=== PATIENT | female | born 1995 | race Caucasian/White ===

== ENCOUNTER 2023-04-06 00:21 | Inpatient (IN) | payer MEDICAID ==
[~2023-04-06] VITALS: Ht 165.1 cm; Wt 58.1 kg
--- NOTE | 2023-04-06 00:42 | NUR ---
BIBFRIEND FOR GENERALIZED ABD PAIN SINCE TUESDAY WORSE WITH PO INTAKE. PT AAOX4, RESTLESS IN BED, GUARDING ABDOMEN AREA. VITALS CHECKED.
[2023-04-06] MEDS ORDERED: MORPHINE SULFATE INJ 4 MG/ML DISP.SYRIN ONE ×3 (00:48→04:42)
[2023-04-06] MEDS ORDERED: IV NS 0.9% 1,000 ML BAG IV ONE (01:00)
[2023-04-06] MEDS ORDERED: MORPHINE SULFATE INJ 2 MG/ML DISP.SYRIN IV ONE ×2 (01:00→03:30)
--- NOTE | 2023-04-06 01:00 | NUR ---
20GA TO RIGHT AC ESTABLISHED, BLOOD WORK COLLECTED, SENT TO LAB
--- NOTE | 2023-04-06 01:20 | NUR ---
TO CT W/ TECH
[2023-04-06 01:33] LABS: BASOPHILS # (AUTO) 0.1 K/uL (0.0-0.2); BASOPHILS % (AUTO) 0.5 % (0.0-2.0); EOSINOPHILS % (AUTO) 0.7 % (0.0-6.0); HEMATOCRIT 39 % (33-45); HEMOGLOBIN 12.7 g/dL (11.5-14.8); LYMPHOCYTES # (AUTO) 0.6 K/uL (0.8-4.8); LYMPHOCYTES % (AUTO) 6.1 % (20.0-44.0); MEAN CORPUSCULAR HGB CONC 32 g/dl (31.0-36.0); MEAN CORPUSCULAR VOLUME 87 fL (82-100); MONOCYTES # (AUTO) 0.9 K/uL (0.1-1.30); MONOCYTES % (AUTO) 8.5 % (2.0-12.0); NEUTROPHILS # (AUTO) 8.8 K/uL (1.8-8.9); NEUTROPHILS % (AUTO) 84.2 % (43.0-81.0); PLATELET COUNT (AUTO) 293 K/uL (150-450); RED BLOOD CELL COUNT(AUTO) 4.54 MIL/uL (4.0-5.2); WHITE BLOOD COUNT (AUTO) 10.5 K/uL (4.3-11.0)
[2023-04-06 01:45] LABS: CALCIUM, SERUM 9.3 mg/dL (8.5-10.1); CREATININE 0.7 mg/dL (0.6-1.3); POTASSIUM 3.9 mmol/L (3.5-5.1)
[2023-04-06 01:50] LABS: ALBUMIN 3.8 g/dL (3.4-5.0); BILIRUBIN,DIRECT 0.3 mg/dL (0.0-0.2); TOTAL PROTEIN, SERUM 7.8 g/dL (6.4-8.2)
[2023-04-06] MEDS ORDERED: FLAGYL/NS RTU 500 MG/100 ML PIGGYBACK IV ONE (03:00)
[2023-04-06] MEDS ORDERED: CIPROFLOXACIN IV RTU 400 MG in PREMIX 1 EA IV SCH (03:00)
[2023-04-06] MEDS ORDERED: METRONIDAZOLE 500MG/ NS 100ML 100 ML IV ONE (03:06)
--- NOTE | 2023-04-06 03:21 | NUR ---
DR HAUSER ON THE PHONE WITH DR BENJI ROSA SURG
--- NOTE | 2023-04-06 03:58 | NUR ---
PARTNER/MG REA [phone], FRIEND WHO BROUGHT HER TO ED IS HERMINIA [phone]
[2023-04-06] MEDS ORDERED: CIPROFLOXACIN IV RTU 200 ML IV ONE (04:13)
--- NOTE | 2023-04-06 04:15 | NUR ---
Chidi sharp in [facility] - 04/06/[address] HAUSER ON THE PHONE W/ DR. ANDRADE FROM [facility]
--- NOTE | 2023-04-06 04:41 | NUR ---
REPORT TO GIVEN TO TYLER WHEELER
--- NOTE | 2023-04-06 04:50 | NUR ---
MAGDALENA RECEIVED FROM ER 27 Y/O FEMALE WITH CC OF ABDOMINAL PAIN MOANING AND CRYING HAD TOTAL OF 12 MG MORPHINE IN ER. FLAGYL INFUSING. AWAITING FOR ADMISSION ORDERS. SPANISG SPEAKING ONLY, ADM INFORMATION OBTAINED FROM PATIENT WITH SUSTAINABILITY CONSULTANT.ORIENTED TO ROOM FACILITIES WELL UNDERSTOOD.
[2023-04-06 05:00] VITALS: BP_SYST 125; BP_DIAS 71; BP_DIAS 75
[2023-04-06] MEDS ORDERED: MORPHINE SULFATE INJ 4 MG/ML DISP.SYRIN IV PRN (05:00)
[2023-04-06] MEDS ORDERED: MAGNESIUM HYDROXIDE 30 ML UDC PO PRN (06:00)
[2023-04-06] MEDS ORDERED: ZOLPIDEM TARTRATE 5 MG TABLET PO PRN (06:00)
[2023-04-06] MEDS ORDERED: ONDANSETRON HCL/PF 4 MG/2 ML VIAL IVP PRN (06:00)
[2023-04-06] MEDS ORDERED: Z GUARD REMEDY 4 OZ OINT TP PRN (06:00)
[2023-04-06] MEDS ORDERED: HYDROCODONE/APAP 5/325MG TABLET PO PRN (06:00)
[2023-04-06] MEDS ORDERED: ACETAMINOPHEN 325 MG TABLET PO PRN (06:00)
[2023-04-06] MEDS ORDERED: MAG HYDROX/AL HYDROX/SIMETH 30 ML UDC PO PRN (06:00)
[2023-04-06] MEDS ORDERED: PIPERACILLIN /TAZOBACTAM 3.375 G in IV D5W 50 ML IV ONE (06:30)
--- NOTE | 2023-04-06 06:30 | NUR ---
MSRN KEPT NPO IVF STARTED. FINALLY FELL ASLEEP.
[2023-04-06] MEDS ORDERED: PIPERACI/TAZO 3.375GM/D5W 50ML PB IV ONE (06:40)
[2023-04-06] MEDS: IV NS 0.9% 1,000 ML IV PRN (06:48)
[2023-04-06 07:40] LABS: BASOPHILS % (AUTO) 0.2 % (0.0-2.0); EOSINOPHILS % (AUTO) 0.6 % (0.0-6.0); HEMATOCRIT 36 % (33-45); LYMPHOCYTES # (AUTO) 0.8 K/uL (0.8-4.8); LYMPHOCYTES % (AUTO) 10.3 % (20.0-44.0); MEAN CORPUSCULAR HGB CONC 33 g/dl (31.0-36.0); MEAN CORPUSCULAR VOLUME 86 fL (82-100); MONOCYTES # (AUTO) 0.9 K/uL (0.1-1.30); MONOCYTES % (AUTO) 10.9 % (2.0-12.0); NEUTROPHILS # (AUTO) 6.2 K/uL (1.8-8.9); PLATELET COUNT (AUTO) 255 K/uL (150-450); RED BLOOD CELL COUNT(AUTO) 4.22 MIL/uL (4.0-5.2); WHITE BLOOD COUNT (AUTO) 7.9 K/uL (4.3-11.0)
--- NOTE | 2023-04-06 07:50 | NUR ---
RN OPENING NOTE RECEIVED PATIENT AWAKE IN BED, A/O X 4. ON ROOM AIR, BREATHING EVEN AND UNLABORED. NO SIGNS OF DISTRESS NOTED. S/S NO PAIN NOTED AT THIS TIME. IV ACCESS AT RAC G#20, INTACT PATENT AND FLUSHING WELL, RUNNING NS AT 75 ML/HOUR, INFUSING WELL. FALL AND SAFETY MEASURES IN PLACED, BED LOCKED IN LOWEST POSITION, SIDE RAILS UP X 2, CALL LIGHT AND TABLE WITHIN REACH; WILL CONTINUE TO MONITOR PATIENT THROUGHOUT SHIFT.
[2023-04-06 08:00] VITALS: BP 102/66
[2023-04-06 09:00] LABS: ALBUMIN 3.1 g/dL (3.4-5.0); CALCIUM, SERUM 8.6 mg/dL (8.5-10.1); CREATININE 0.6 mg/dL (0.6-1.3); MAGNESIUM 2.2 mg/dL (1.8-2.4); PHOSPHORUS 2.4 mg/dL (2.5-4.9); POTASSIUM 3.6 mmol/L (3.5-5.1); TOTAL PROTEIN, SERUM 6.8 g/dL (6.4-8.2)
[2023-04-06] MEDS: PANTOPRAZOLE 40 MG VIAL IV SCH (09:11)
--- NOTE | 2023-04-06 11:40 | NUR ---
RN NOTE PATIENT HAVE FEVER 101.7, BP: 116/78 HR:128, ABDOMINAL PAIN 8/10, DOCTOR WAS INFORMED, NO NEW ORDERS, COOLING MEASURES USED, CHARGE NURSE AWARE, WILL CONTINUE TO MONITOR.
--- NOTE | 2023-04-06 11:58 | NUR ---
RN NOTE PATIENT IS NOT IN HER ROOM PATIENT WENT FOR A NM HEPATO BILIARY HIDA, CHARGE NURSE AWARE.
--- NOTE | 2023-04-06 13:33 | NUR ---
RN NOTE PATIENT IS BACK IN HER ROOM, PATIENT WENT FOR NM HEPATO BILIARY HIDA, TOLERATED PROCEDURE WILL. PATIENT COMPLAINING OF ABDOMINAL PAIN 8/10 AND NAUSEA WILL GIVE PAIN MEDICATION AND ZOFRAN. CHARGE NURSE AWARE. WILL CONTINUE TO MONITOR.
[2023-04-06] MEDS: MORPHINE SULFATE INJ 2 MG/ML DISP.SYRIN IV PRN ×2 (13:42→21:31)
--- NOTE | 2023-04-06 14:10 | NUR ---
RN NOTE PATIENT IS NOT IN HER ROOM PATIENT WENT FOR A MRCP, CHARGE NURSE AWARE.
[2023-04-06 16:00] VITALS: BP 102/57
[2023-04-06] MEDS ORDERED: Sodium Phosphate 15 MMOL in IV NS 0.9% 245 ML IV ONE (16:00)
[2023-04-06] MEDS: PIPERACILLIN /TAZOBACTAM 3.375 G in IV D5W 50 ML IV SCH ×2 (16:26→20:30)
--- NOTE | 2023-04-06 17:58 | NUR ---
RN NOTE DOCTOR BENJI WAS IN THE UNIT AND ASK TO PLEASE BE NOTIFY WHEN THERE IS A CONFIRMATION OF PATIENT STAY OR TRANSFERRING TO [facility]. CHARGE NURSE AWARE. WILL ENDORSE TO NEXT SHIFT NURSE.
--- NOTE | 2023-04-06 18:48 | NUR ---
RN NOTE RECEIVED CALLED FROM HUONG, HER NUMBER IS [phone], SHE GAVE AUTHORIZATION # [id number]. PATIENT SUPPOSED TO BE TRANSFER TO [facility] DUE TO INSURANCE. TRIED TO CALL CM NO ANSWER, DC WITH IMAGES ORDERED, AWAITING TO BE TRANSFER CHARGE NURSE AWARE, WILL ENDORSE TO DREDGE BOAT ENGINEER NURSE.
--- NOTE | 2023-04-06 18:49 | NUR ---
RN CLOSING NOTE PATIENT AWAKE IN BED, A/O X 4. ON ROOM AIR, BREATHING EVEN AND UNLABORED. NO SIGNS OF DISTRESS NOTED. PAIN LEVEL 4/10 PAIN MEDICATION WAS GIVEN DURING AM SHIFT. IV ACCESS AT RAC G#20, INTACT PATENT AND FLUSHING WELL, RUNNING NS AT 75 ML/HOUR, INFUSING WELL. FALL AND SAFETY MEASURES IN PLACED, BED LOCKED IN LOWEST POSITION, SIDE RAILS UP X 2, CALL LIGHT AND TABLE WITHIN REACH. ALL NEEDS ATTENDED AND ANTICIPATED. PATIENT AWAITING TO BE TRANSFER TO [facility]. WILL ENDORSE TO DIRT CONTRACTOR NURSE..
--- NOTE | 2023-04-06 19:00 | NUR ---
RN opening notes Received Pt from morning nurse. Pt is resting in bed comfortably accompanied by Pt's partner Jakob. Pt is alert and orientedX4. Pt speaks Portuguese and able to make needs known. IV site at RAC# 20 is clean, intact and infusing well sodium phosphate. safety precautions is maintained. Bed at low position, brakes locked, bed alarm is on, side rails upX2, hob elevated and call light is within reach. will continue to monitor.
--- NOTE | 2023-04-06 19:43 | NUR ---
RN notes Called raissa and spoke with Leny regarding orange picker machine operator time to Marisela Michele informed there is no schedule yet. Informed Leny will call back.
--- NOTE | 2023-04-06 19:50 | NUR ---
RN notes Called case worker spoke with Margaret regarding lateral transfer. Margaret informed there's no available bed yet at [facility] and they will call back to inform the bed number.
--- NOTE | 2023-04-06 19:52 | NUR ---
RN notes Called [facility] regarding bed number. [facility] informed there is no available bed at this time. They will call when the bed is avalaible. Pt and Pt's partner are informed and aware regarding the situation.
[2023-04-06 20:00] VITALS: BP_SYST 113; BP_SYST 97; BP_DIAS 67; BP_DIAS 68
--- NOTE | 2023-04-06 21:39 | NUR ---
RN notes Pt is complaining of pain and crying. Pt is complaining of abd pain. administered morphine as ordered. VS is stable. safety precautions is maintained. will continue to monitor.
--- NOTE | 2023-04-06 23:25 | NUR ---
RN notes Pt signed the consent for ERCP per MD ordered. Pt partner Jakob at the bedside. Pt and Pt's partner verbalize understanding.
--- NOTE | 2023-04-06 23:38 | NUR ---
RN notes Pt is having temp 100.1. administered tylenol/po as ordered. No S/S of distress noted. Cooling measures applied. will rechecked in 30 min.
--- NOTE | 2023-04-07 00:14 | NUR ---
RN notes Pt temp 98.2 oral.
[2023-04-07] MEDS: PIPERACILLIN /TAZOBACTAM 3.375 G in IV D5W 50 ML IV SCH ×5 (00:34→23:36)
[2023-04-07 05:54] LABS: BASOPHILS % (AUTO) 0.2 % (0.0-2.0); EOSINOPHILS % (AUTO) 1.5 % (0.0-6.0); HEMATOCRIT 37 % (33-45); HEMOGLOBIN 12.4 g/dL (11.5-14.8); LYMPHOCYTES # (AUTO) 1.1 K/uL (0.8-4.8); LYMPHOCYTES % (AUTO) 10.7 % (20.0-44.0); MEAN CORPUSCULAR HGB CONC 33 g/dl (31.0-36.0); MEAN CORPUSCULAR VOLUME 86 fL (82-100); MONOCYTES # (AUTO) 1.4 K/uL (0.1-1.30); MONOCYTES % (AUTO) 13.2 % (2.0-12.0); NEUTROPHILS # (AUTO) 7.9 K/uL (1.8-8.9); NEUTROPHILS % (AUTO) 74.4 % (43.0-81.0); PLATELET COUNT (AUTO) 228 K/uL (150-450); RED BLOOD CELL COUNT(AUTO) 4.35 MIL/uL (4.0-5.2); WHITE BLOOD COUNT (AUTO) 10.6 K/uL (4.3-11.0)
[2023-04-07] MEDS: MORPHINE SULFATE INJ 2 MG/ML DISP.SYRIN IV PRN ×2 (06:10→22:03)
[2023-04-07 06:24] LABS: ALBUMIN 2.7 g/dL (3.4-5.0); BILIRUBIN,DIRECT 0.3 mg/dL (0.0-0.2); BILIRUBIN,TOTAL 0.9 mg/dL (0.2-1.0); CALCIUM, SERUM 8.8 mg/dL (8.5-10.1); CREATININE 0.6 mg/dL (0.6-1.3); MAGNESIUM 2.3 mg/dL (1.8-2.4); PHOSPHORUS 3.3 mg/dL (2.5-4.9); POTASSIUM 3.7 mmol/L (3.5-5.1); TOTAL PROTEIN, SERUM 6.7 g/dL (6.4-8.2)
--- NOTE | 2023-04-07 06:40 | NUR ---
RN closing notes Pt is resting in bed comfortably. Pt is alert and orientedX4. On room air. No SOB. No S/S of distress noted. IV site at RAC# 2o is clean, intact and infusing well NS@ 75 ml/hr. routine meds were given as ordered including pain management. Vs is stable. afebrile. Kept Pt clean, dry and comfortable. Safety precautions is maintained. Bed at low position, brakes locked, side rails upX2, hob elevated, bed alarm is on and call light is within reach. Will endorse to am nurse for DASHAWN.
--- NOTE | 2023-04-07 07:30 | NUR ---
RN OPENING NOTE RECEIVED PATIENT AWAKE IN BED, A/O X 4. ON ROOM AIR, BREATHING EVEN AND UNLABORED. NO SIGNS OF DISTRESS NOTED. PAIN LEVEL 3/10 NOTED AT THIS TIME, PAIN MEDICATION WAS GIVEN BY PREVIOUS NURSE. IV ACCESS AT RAC G#20, INTACT PATENT AND FLUSHING WELL, RUNNING NS AT 75 ML/HOUR, INFUSING WELL. FALL AND SAFETY MEASURES IN PLACED, BED LOCKED IN LOWEST POSITION, BED ALARM ON, SIDE RAILS UP X 2, CALL LIGHT AND TABLE WITHIN REACH; WILL CONTINUE TO MONITOR PATIENT THROUGHOUT SHIFT.
[2023-04-07] MEDS: PANTOPRAZOLE 40 MG VIAL IV SCH (08:16)
[2023-04-07 08:36] VITALS: BP 115/77
[2023-04-07] MEDS ORDERED: MIDAZOLAM HCL 2 MG/2ML VIAL ONE (10:34)
[2023-04-07] MEDS ORDERED: FENTANYL PF 100MCG/2ML AMPUL ONE (10:34)
[2023-04-07] MEDS ORDERED: ROCURONIUM BROMIDE 50 MG/5 ML ONE (10:35)
[2023-04-07] MEDS ORDERED: FAMOTIDINE/PF INJ 20 MG/2 ML VIAL IV ONE (10:35)
[2023-04-07] MEDS ORDERED: ANESTHESIA TRAY IN PYXIS 1 EA TRAY MC ONE (10:37)
[2023-04-07] MEDS ORDERED: IOHEXOL 100 ML IV ONE (10:37)
[2023-04-07] MEDS ORDERED: INDOMETHACIN 100 MG SUPP.RECT ONE ×2 (10:38→16:35)
--- NOTE | 2023-04-07 11:30 | NUR ---
RN NOTE PATIENT IS NOT IN HER ROOM PATIENT WENT FOR AN ERCP. CHARGE NURSE AWARE.
--- NOTE | 2023-04-07 14:03 | NUR ---
RN NOTE PATIENT IS BACK IN HER ROOM, PATIENT WENT FOR ERCP, TOLERATED PROCEDURE WELL. V/S TAKEN AND STABLE. CHARGE NURSE AWARE. WILL CONTINUE TO MONITOR.
[2023-04-07 14:05] VITALS: BP 127/77
[2023-04-07] MEDS: IV NS 0.9% 1,000 ML IV PRN (15:03)
[2023-04-07 15:41] VITALS: BP 119/76
--- NOTE | 2023-04-07 15:59 | NUR ---
RN NOTE DOCTOR BENJI CALLED AND ORDER PATIENT TO BE NPO AFTER MIDNIGHT AND TO OBTAIN CONSENT FOR LAPAROSCOPIC CHOLECYSTECTOMY POSSIBLE OPEN EXPLORATORY. ORDER NOTED AND CARRIED. CHARGE NURSE AWARE.
--- NOTE | 2023-04-07 18:41 | NUR ---
RN CLOSING NOTE PATIENT AWAKE IN BED, A/O X 4. ON ROOM AIR, BREATHING EVEN AND UNLABORED. NO SIGNS OF DISTRESS NOTED. PAIN LEVEL 2/10 PAIN, NO PAIN MEDICATION GIVEN. IV ACCESS AT RAC G#20, INTACT PATENT AND FLUSHING WELL, RUNNING NS AT 75 ML/HOUR, INFUSING WELL. FALL AND SAFETY MEASURES IN PLACED, BED LOCKED IN LOWEST POSITION, SIDE RAILS UP X 2, CALL LIGHT AND TABLE WITHIN REACH. ALL NEEDS ATTENDED AND ANTICIPATED. PATIENT AWAITING TO BE TRANSFER TO [facility]. WILL ENDORSE TO GREEN END DEPARTMENT SUPERVISOR NURSE.
--- NOTE | 2023-04-07 19:00 | NUR ---
RN opening notes Pt is sitting in bed comfortably watching TV. Pt is alert and orientedX4. On room air. No SOB. No S/S of distress noted. IV site at RAC# 20 is clean, intact and infusing well NS@ 75 ml/hr. Safety precautions is maintained. Bed at low position, brakes locked, side rails upX2, hob elevated, bed alarm is on and call light is within reach. Will continue to monitor.
[2023-04-07 20:00] VITALS: BP 105/75
--- NOTE | 2023-04-07 22:09 | NUR ---
RN notes Pt is crying and complaining of abd pain 10/10 on pain level. adminsitered morphine/iv as ordered. safety precautions is maintained. will continue to monitor.
[2023-04-08] VITALS (8 sets, daily range): BP systolic 102–122; BP diastolic 65–83
[2023-04-08] MEDS: IV NS 0.9% 1,000 ML IV PRN (02:31)
[2023-04-08] MEDS: PIPERACILLIN /TAZOBACTAM 3.375 G in IV D5W 50 ML IV SCH ×4 (05:04→23:26)
[2023-04-08 06:14] LABS: BASOPHILS % (AUTO) 0.1 % (0.0-2.0); EOSINOPHILS % (AUTO) 0.1 % (0.0-6.0); HEMATOCRIT 37 % (33-45); HEMOGLOBIN 12.2 g/dL (11.5-14.8); LYMPHOCYTES # (AUTO) 0.4 K/uL (0.8-4.8); LYMPHOCYTES % (AUTO) 4.4 % (20.0-44.0); MEAN CORPUSCULAR HGB CONC 33 g/dl (31.0-36.0); MEAN CORPUSCULAR VOLUME 85 fL (82-100); MONOCYTES # (AUTO) 0.6 K/uL (0.1-1.30); MONOCYTES % (AUTO) 6.8 % (2.0-12.0); NEUTROPHILS # (AUTO) 8.5 K/uL (1.8-8.9); NEUTROPHILS % (AUTO) 88.6 % (43.0-81.0); PLATELET COUNT (AUTO) 300 K/uL (150-450); WHITE BLOOD COUNT (AUTO) 9.5 K/uL (4.3-11.0)
--- NOTE | 2023-04-08 06:30 | NUR ---
RN closing notes Pt is resting in bed comfortably. Pt is alert and orientedX4. On room air. No SOB. No S/S of distress noted. IV site at RAC# 2o is clean, intact and infusing well NS@ 75 ml/hr. routine meds were given as ordered including pain management. Vs is stable. afebrile. Kept Pt clean, dry and comfortable. NPO status. Safety precautions is maintained. Bed at low position, brakes locked, side rails upX2, hob elevated, bed alarm is on and call light is within reach. Will endorse to am nurse for DASHAWN.
[2023-04-08 06:40] LABS: ALBUMIN 2.5 g/dL (3.4-5.0); BILIRUBIN,DIRECT 1.1 mg/dL (0.0-0.2); BILIRUBIN,TOTAL 1.6 mg/dL (0.2-1.0); CALCIUM, SERUM 8.7 mg/dL (8.5-10.1); CREATININE 0.5 mg/dL (0.6-1.3); TOTAL PROTEIN, SERUM 6.7 g/dL (6.4-8.2)
[2023-04-08] MEDS ORDERED: MIDAZOLAM HCL 2 MG/2ML VIAL ONE ×2 (07:55→13:23)
[2023-04-08] MEDS ORDERED: FENTANYL PF 100MCG/2ML AMPUL ONE ×3 (07:55→13:02)
--- NOTE | 2023-04-08 08:00 | NUR ---
MS RN OPENING NOTES RECEIVED PATIENT IN BED, CALM, AOX4, TURKS AND [place] SPEAKING MOSTLY, ABLE TO UNDERSTAND TAJIK, BREATHING ON ROOM AIR WITHOUT ANY DIFFICULTY. DENIED PAIN, DISCOMFORT, NAUSEA/VOMITING AT THE MOMENT, PATIENT REMAINS TO BE ON NPO FOR HER PROCEDURE AT 0830 FOR LAPAROSCOPIC YANCY POSSIBLE OPEN EXPLORATORY LAP WITH DR LEBLANC. IV ACCESS ON RAC G#20 WITH NS RUNNING AT 75/ML, PATENT, FLUSHING WELL. AMBULATORY. SAFETY MEASURES IN PLACE: BED IN LOWEST AND LOCKED POSITION, SIDE RAILS UP X2, CALL LIGHT AND TRAY TABLE WITHIN EASY REACH.
--- NOTE | 2023-04-08 08:45 | NUR ---
RN NOTES PATIENT WAS PICKED UP BY OR STAFF VIA HER BED FOR LAPAROSCOPIC CHOLECYSTECTOMY PROCEDURE.
[2023-04-08] MEDS ORDERED: LIDOCAINE 1% INJ 50 ML MDV IJ ONE (08:52)
[2023-04-08] MEDS ORDERED: BUPIVACAINE MPF W/EPI 0.25% 30 ML VIAL ONE (08:52)
[2023-04-08] MEDS: PANTOPRAZOLE 40 MG VIAL IV SCH (09:00)
[2023-04-08] MEDS ORDERED: PHYTONADIONE INJ 10 MG/1 ML AMPUL ONE (10:51)
[2023-04-08] MEDS ORDERED: HYDROMORPHONE INJ 2 MG/ML DISP.SYRIN ONE (10:53)
[2023-04-08] MEDS ORDERED: BACITRACIN ZINC OINT PACKET 1 EA PACKET TP ONE (11:33)
[2023-04-08] MEDS ORDERED: HYDROMORPHONE 1 MG/1 ML DISP.SYRIN ONE ×2 (11:59→12:16)
[2023-04-08] MEDS ORDERED: KETOROLAC TROMETHAMINE INJ 30 MG/ML VIAL ONE (13:19)
[2023-04-08] MEDS: CELECOXIB 100 MG CAPSULE PO SCH (14:21)
[2023-04-08] MEDS: GABAPENTIN 100 MG CAPSULE PO SCH ×2 (14:21→22:54)
[2023-04-08] MEDS: ACETAMINOPHEN 325 MG TABLET PO SCH ×2 (14:21→22:55)
[2023-04-08] MEDS ORDERED: KETOROLAC TROMETHAMINE INJ 30 MG/ML VIAL IV ONE (15:00)
[2023-04-08] MEDS ORDERED: KETOROLAC TROMETHAMINE INJ 30 MG/ML VIAL IM ONE (15:00)
--- NOTE | 2023-04-08 16:04 | NUR ---
RN POST OP NOTES PATIENT CAME BACK FROM OR AT 1325 VIA HER BED FROM PACU ACCOMPANIED BY 2 OR STAFF, PATIENT IS SLEEPING EASILY AROUSABLE TO VERBAL STIMULI. BREATHING WITHOUT DIFFICULTY ON ROOM AIR, NOT IN ANY ACUTE DISTRESS, PATIENT IS S/P LAPAROSCOPIC CHOLECYSTECTOMY, LYSIS OF ADHESIONS BY DR DOUGLASS WITH HIRAL DRAIN ON THE RIGHT SIDE OF THE ABDOMEN, DRAINING SEROSANGUINEOUS FLUIDS ABOUT 20 ML, NEGATIVE PRESSURE MAINTAINED. INCISION SITES COVERED WITH DRESSING WITHOUT ANY SIGNS OF BLEEDING AT THE MOMENT. VS TAKEN AND RECORDED, STABLE. IV ACCESS ON RAC G#20 WITH NEW LR IV INFUSING AT 125 ML/HR, PATENT AND FLUSHING WELL. PATIENT HAS BEEN ABLE TO TOLERATE ICE CHIPS, REQUESTED FOR APPLE JUICE. GIVEN DUE PAIN MEDICATIONS AT 1500. PATIENT IS WITH 2 VISITORS AT BEDSIDE. PATIENT IS CALM, AND COOPERATIVE. WILL CONTINUE TO MONITOR.
[2023-04-08] MEDS: MORPHINE SULFATE INJ 2 MG/ML DISP.SYRIN IV PRN (18:14)
--- NOTE | 2023-04-08 18:14 | NUR ---
RN NOTES PATIENT COMPLAINING OF 9/10 ON THE OPERATIVE SITE, ADMINISTERED MORPHINE 4 MG IVPB, WILL CONTINUE TO MONITOR
--- NOTE | 2023-04-08 19:05 | NUR ---
MS RN OPENING NOTE PATIENT IS LYING IN BED. SHE IS ALERT AND ORIENTED, AO X 4. SHE IS ON RA, TOLERATED WELL. NO S/S OF DISTRESS OR SOB. IV ACCESS IS AT HER RIGHT AC, #20G, INFUSING LR @ 125 ML / HR. PT IS LAO SPEAKING, SHE USES PHONE FOR TRANSLATION. PT DENIES OF HAVING PAIN AT THIS MOMENT. SAFETY MEASURES ARE IN PLACED: BED IN LOWEST AND LOCKED POSITION; SIDE RAILS UP X 2; CALL LIGHT AND TABLE ARE WITHIN REACH. WILL CONTINUE MONITORING THE PT AND PROVIDE THE CARE PT NEEDS.
[2023-04-08] MEDS: IV LR 1000 ML 1,000 ML IV PRN ×2 (19:21→23:01)
--- NOTE | 2023-04-08 19:31 | NUR ---
MS SUMMER OPENING NOTES PATIENT IN BED, CALM, AOX4, TALKING TO SOMEONE OVER THE PHONE, STABLE IN ROOM AIR WITHOUT ANY DIFFICULTY. PAIN IS CONTROLLED BY MORPHINE IVP, NO EPISODES OF N/V. INCISION SITES ARE INTACT WITH DRESSING WITHOUT ANY ACTIVE BLEEDING NOTED, HIRAL DRAINED DRAINING SEROSANGUINEOUS FLUIDS ABOUT 66 ML DURING MY SHIFT. IV ACCESS ON RAC G#20 WITH LR RUNNING AT 125 ML/HR, PATENT, FLUSHING WELL. ALL DUE MEDS GIVEN, ALL NEEDS MET. SAFETY MEASURES MAINTAINED: BED IN LOWEST AND LOCKED POSITION, SIDE RAILS UP X2, CALL LIGHT AND TRAY TABLE WITHIN EASY REACH. ENDORSED TO DOUBLE END CHUCKING MACHINE OPERATOR NURSE. Addendum: 04/08/23 at 1935 by NICHOLE GRAY RN ERRATUM: MS WHEELER CLOSING NOTES
--- NOTE | 2023-04-08 21:45 | NUR ---
MS RN NOTE PT STATED THAT SHE WAS HAVING PAIN, 05/23. PRN MEDICATION, NORCO, ADMINISTERED PER MD ORDER.
[2023-04-09] MEDS: MORPHINE SULFATE INJ 2 MG/ML DISP.SYRIN IV PRN ×5 (00:47→20:03)
--- NOTE | 2023-04-09 00:47 | NUR ---
MS RN NOTE PT STATED THAT SHE WAS HAVING PAIN AT HER ABD 10/10 ON A ZERO TO 10 PAIN SCALE. PRN IV MEDICATION, MORPHINE, ADMINISTERED TO THE PT PER MD ORDER.
[2023-04-09] MEDS: CELECOXIB 100 MG CAPSULE PO SCH ×2 (03:34→15:29)
[2023-04-09] MEDS: PIPERACILLIN /TAZOBACTAM 3.375 G in IV D5W 50 ML IV SCH ×2 (05:06→11:38)
[2023-04-09 05:49] LABS: BASOPHILS % (AUTO) 0.2 % (0.0-2.0); EOSINOPHILS % (AUTO) 0.2 % (0.0-6.0); HEMATOCRIT 34 % (33-45); HEMOGLOBIN 11.1 g/dL (11.5-14.8); LYMPHOCYTES # (AUTO) 1.3 K/uL (0.8-4.8); LYMPHOCYTES % (AUTO) 13.3 % (20.0-44.0); MEAN CORPUSCULAR HGB CONC 33 g/dl (31.0-36.0); MEAN CORPUSCULAR VOLUME 86 fL (82-100); MONOCYTES # (AUTO) 0.7 K/uL (0.1-1.30); MONOCYTES % (AUTO) 7.3 % (2.0-12.0); NEUTROPHILS # (AUTO) 7.7 K/uL (1.8-8.9); PLATELET COUNT (AUTO) 319 K/uL (150-450); RED BLOOD CELL COUNT(AUTO) 3.92 MIL/uL (4.0-5.2); WHITE BLOOD COUNT (AUTO) 9.7 K/uL (4.3-11.0)
[2023-04-09] MEDS: GABAPENTIN 100 MG CAPSULE PO SCH ×3 (06:07→22:57)
[2023-04-09] MEDS: ACETAMINOPHEN 325 MG TABLET PO SCH ×3 (06:07→22:57)
[2023-04-09 06:42] LABS: ALBUMIN 2.3 g/dL (3.4-5.0); BILIRUBIN,DIRECT 0.2 mg/dL (0.0-0.2); BILIRUBIN,TOTAL 0.4 mg/dL (0.2-1.0); CALCIUM, SERUM 8.4 mg/dL (8.5-10.1); CREATININE 0.6 mg/dL (0.6-1.3); POTASSIUM 3.7 mmol/L (3.5-5.1); TOTAL PROTEIN, SERUM 5.8 g/dL (6.4-8.2)
--- NOTE | 2023-04-09 07:00 | NUR ---
MS RN CLOSING NOTE PATIENT IS LYING IN BED. SHE IS ALERT AND ORIENTED, AO X 4. SHE IS ON RA, TOLERATED WELL. NO S/S OF DISTRESS OR SOB. IV ACCESS IS AT HER RIGHT AC, #20G, INFUSING LR @ 125 ML / HR. PT IS ENGLISH SPEAKING, SHE USES PHONE FOR TRANSLATION. PT DENIES OF HAVING PAIN AT THIS MOMENT. DURING THE SHIFT, PT'S NEEDS HAVE BEEN MET. SAFETY MEASURES ARE IN PLACED: BED IN LOWEST AND LOCKED POSITION; SIDE RAILS UP X 2; CALL LIGHT AND TABLE ARE WITHIN REACH. WILL ENDORSE NEXT SHIFT NURSE FOR CONTINUING PT CARE.
[2023-04-09 08:00] VITALS: BP 108/76
[2023-04-09] MEDS: PANTOPRAZOLE 40 MG VIAL IV SCH (09:06)
[2023-04-09] MEDS: IV LR 1000 ML 1,000 ML IV PRN (09:17)
--- NOTE | 2023-04-09 09:25 | NUR ---
RN NOTES PATIENT COMPLAINING OF 8/10 PAIN FROM THE INCISION AREA, GIVEN MORPHINE 4 MG IVP, WILL CONTINUE TO MONITOR.
--- NOTE | 2023-04-09 13:25 | NUR ---
RN NOTES PATIENT COMPLAINING OF 8/10 PAIN AGGRAVATED BY POSITION CHANGES, GIVEN MORPHINE 4 MG IVP, WILL CONTINUE TO MONITOR.
--- NOTE | 2023-04-09 15:25 | NUR ---
RN NOTES RECEIVED A CALL FROM PHARMACY REGARDING MAGNESIUM IV ORDER BY DR LEBLANC, CONFIRMED.
[2023-04-09] MEDS ORDERED: Magnesium 1GM/D5W 100ML PREMIX PIGGYBACK IV ONE (15:30)
[2023-04-09] MEDS: Magnesium 1GM/D5W 100ML PREMIX 100 ML IV SCH ×2 (15:33→16:49)
[2023-04-09] MEDS ORDERED: K PHOS NEUTRAL 250 MG TABLET PO ONE (16:00)
[2023-04-09 16:05] VITALS: BP 111/75
--- NOTE | 2023-04-09 18:28 | NUR ---
MS RN CLOSING NOTES PATIENT IN BED WITH A RELATIVE AT BEDSIDE, CALM, AOX4,ABLE TO MAKE NEEDS FULLY KNOWN, ASKED IF SHE COULD LIE FLAT, EDUCATED SHE TOLERATED. STABLE IN ROOM AIR WITHOUT ANY DIFFICULTY. PAIN IS CONTROLLED DURING THIS TIME, NO EPISODES OF N/V. INCISION SITES ARE INTACT WITH DRESSING WITHOUT ANY ACTIVE BLEEDING NOTED, HIRAL DRAIN DRAINING SEROUS FLUIDS ABOUT 10 ML, PATENT AND NEGATIVE PRESSURE MAINTAINED: IV ACCESS ON LEFT HAND G#22 WITH LR RUNNING AT 125 ML/HR, PATENT, FLUSHING WELL. ALL DUE MEDS GIVEN, ALL NEEDS MET. SAFETY MEASURES MAINTAINED: BED IN LOWEST AND LOCKED POSITION, SIDE RAILS UP X2, CALL LIGHT AND TRAY TABLE WITHIN EASY REACH. WILL ENDORSE TO LOW VISION THERAPIST NURSE.
--- NOTE | 2023-04-09 19:35 | NUR ---
MS RN NOTES RECEIVED ON BED SLEEPING,AROUSABLE TO VERBAL STIMULI,PARTNER AT BEDSIDE.PRESENT IVF LR AT 125ML/HR RATE INFUSING WELL ON LEFT HAND,SITE PATENT.ABDOMINAL INCISION WITH BANDAGES NOTED.ENCOURAGED EARLY AMBULATION TO PREVENT FURTHER OCCURRENCE OF COMPLICATIONS.WILL CONTINUE TO MONITOR STATUS.CALL LIGHT IN REACH,NEEDS ANTICIPATED.
[2023-04-09 20:00] VITALS: BP 135/82
--- NOTE | 2023-04-09 20:03 | NUR ---
MS RN NOTES IN PAIN 9/10 ON PAIN SCALE AFTER USING THE RESTROOM.MEDICATED WITH MORPHINE 4MG IV ORDERED AND PER PATIENT REQUEST.VITAL SIGNS STABLE.
[2023-04-09] MEDS: PIPERACILLIN /TAZOBACTAM 3.375 G in IV D5W 100 ML IV SCH (20:57)
[2023-04-10] MEDS: IV LR 1000 ML 1,000 ML IV PRN (02:03)
[2023-04-10] MEDS: MORPHINE SULFATE INJ 2 MG/ML DISP.SYRIN IV PRN (02:26)
--- NOTE | 2023-04-10 02:26 | NUR ---
MS RN NOTES PAIN MANAGEMENT AWAKE,HAVING ABDOMINAL PAIN 8/10 ON PAIN SCALE.MORPHINE 4MG IV GIVEN ORDERED.
[2023-04-10] MEDS: CELECOXIB 100 MG CAPSULE PO SCH ×2 (03:16→15:08)
[2023-04-10] MEDS: PIPERACILLIN /TAZOBACTAM 3.375 G in IV D5W 100 ML IV SCH ×2 (04:29→13:36)
[2023-04-10 06:03] LABS: BASOPHILS % (AUTO) 0.4 % (0.0-2.0); EOSINOPHILS % (AUTO) 1.6 % (0.0-6.0); HEMATOCRIT 34 % (33-45); HEMOGLOBIN 11.3 g/dL (11.5-14.8); LYMPHOCYTES # (AUTO) 2.2 K/uL (0.8-4.8); LYMPHOCYTES % (AUTO) 28.8 % (20.0-44.0); MEAN CORPUSCULAR HGB CONC 33 g/dl (31.0-36.0); MEAN CORPUSCULAR VOLUME 85 fL (82-100); MONOCYTES # (AUTO) 0.9 K/uL (0.1-1.30); MONOCYTES % (AUTO) 11.3 % (2.0-12.0); NEUTROPHILS # (AUTO) 4.4 K/uL (1.8-8.9); NEUTROPHILS % (AUTO) 57.9 % (43.0-81.0); PLATELET COUNT (AUTO) 366 K/uL (150-450); RED BLOOD CELL COUNT(AUTO) 4.03 MIL/uL (4.0-5.2); WHITE BLOOD COUNT (AUTO) 7.6 K/uL (4.3-11.0)
[2023-04-10 06:17] LABS: ALBUMIN 2.3 g/dL (3.4-5.0); BILIRUBIN,DIRECT 0.1 mg/dL (0.0-0.2); BILIRUBIN,TOTAL 0.4 mg/dL (0.2-1.0); CALCIUM, SERUM 8.5 mg/dL (8.5-10.1); CREATININE 0.5 mg/dL (0.6-1.3); POTASSIUM 3.2 mmol/L (3.5-5.1); TOTAL PROTEIN, SERUM 5.9 g/dL (6.4-8.2)
[2023-04-10] MEDS: GABAPENTIN 100 MG CAPSULE PO SCH ×2 (06:35→15:08)
[2023-04-10] MEDS: ACETAMINOPHEN 325 MG TABLET PO SCH ×2 (06:42→15:08)
--- NOTE | 2023-04-10 06:57 | NUR ---
MS RN NOTES PAIN MANAGEMENT EFFECTIVE,ENCOURAGED AMBULATION WHEN AWAKE.IV HYDRATION TOLERATED WELL.IV ABX ADMINISTERED SCHEDULED.IN NO ACUTE DISTRESS.
--- NOTE | 2023-04-10 07:33 | NUR ---
RN OPENING NOTE RECIEVED PATIENT ON BED AWAKE ON BED A/O X4 CHINESE SPEAKING, ON MMODERATE HIGH BACK REST,
--- NOTE | 2023-04-10 07:38 | NUR ---
RN OPENING NOTES RECIEVED PATIENT ON BED A/O X4 IRANIAN SPEAKING ON MODERATE HIGH BACK REST. ON ROOM AIR NO SOB OR RESPIRATORY DISTRESS NOTED. WITH IV ACCES ON HER LEFT HAND #22G INFUSING D5LR AT 75 L/MIN BUT CURRENTLY SHE'S HOOKED ON ANTIBIOTIC. WITH HIRAL DRAINAGE DRAINING WELL. PATIENT IS COMFORTABLE AND CURRENTLY NOT IN PAIN. SAFETY PRECAUTION MAINTAINED: BED IN LOWEST LOCKED POSITION, SIDERAILS ARE UP X2, CALL LIGHT WITHIN REACH. WILL CONTINUE TO MONITOR.
[2023-04-10] MEDS ORDERED: PANTOPRAZOLE 40 MG/PACK PACK PO SCH (09:00)
[2023-04-10] MEDS: POTASSIUM CL. PREMIX PERIPHER. 50 ML IV SCH ×4 (09:02→11:51)
[2023-04-10 10:53] VITALS: BP 127/86
--- NOTE | 2023-04-10 12:00 | NUR ---
RN NOTES REMOVED THE HIRAL DRAIN.
[2023-04-10] MEDS ORDERED: BACI/NEOM/POLY B OINT PKT 1 UDPKT PACKET TP ONE (12:30)
[2023-04-10] MEDS ORDERED: HYDR-4303 PO (12:53)
--- NOTE | 2023-04-10 13:00 | NUR ---
RN NOTE PATIENT RECIEVED THE THIRD IV POTASSIUM BUT CANNOT TOLERATE IT. CALLED PHARMACY TO REPLACE IT WITH PO POTASSIUM.
[2023-04-10] MEDS ORDERED: POTASSIUM CHLORIDE 20 MEQ TAB.PRT.SR PO ONE (13:30)
--- NOTE | 2023-04-10 15:45 | NUR ---
DISCHARGE NOTE RECIEVED ORDER FOR DISCHARGE. PATIENT IS A/O X4 ABLE TO MAKE NEEDS KNOWN. STABLE ON ROOM AIR, NO SOB OR RESPIRATORY DISTRESS NOTED. DISCHARGE INSTRUCTIONS GIVEN, PATIENT VERBALIZED UNDERSTANDING. ALL BELONGINGS ACCOUNTED FOR, BELONGINGS SHEET SIGNED. PATIENT IS IN MILD DISCOMFORT WHEN AMBULATING, PAIN MEDICATION GIVEN. IV ACCESS REMOVED,CATHETER TIP INTACT, PRESSURE DRESSING APPLIED, EXITCARE FOLDER GIVEN TO PATIENT, PATIENT LEFT IN STABLE CONDITION WITH HER AUNT VIA PRIVATE CAR.
== END 2023-04-10 15:45 | disposition home or self-care (01) | DRG 263 ==
LOC: ER 00:24 → MED 03:20
PROVIDERS: ADMIT Internal Medicine; ATTEND Internal Medicine
PROC: BF14YZZ Fluoroscopy of Gallbladder, Bile Ducts and Pancreatic Ducts using Other Contrast (ICD-10-PCS; 2023-04-07)
PROC: 0F798ZZ Dilation of Common Bile Duct, Via Natural or Artificial Opening Endoscopic (ICD-10-PCS; 2023-04-07)
PROC: 0FC98ZZ Extirpation of Matter from Common Bile Duct, Via Natural or Artificial Opening Endoscopic (ICD-10-PCS; 2023-04-07)
PROC: 0DNU4ZZ Release Omentum, Percutaneous Endoscopic Approach (ICD-10-PCS; principal; 2023-04-08)
PROC: 0FT44ZZ Resection of Gallbladder, Percutaneous Endoscopic Approach (ICD-10-PCS; principal; 2023-04-08)
DX: K80.63 Calculus of gallbladder and bile duct with acute cholecystitis with obstruction (principal); K66.0 Peritoneal adhesions (postprocedural) (postinfection); R74.01 Elevation of levels of liver transaminase levels; Z20.822 Contact with and (suspected) exposure to COVID-19
CPT/HCPCS: 36415; 74018; 74181-TC; 78226; 80048-TC; 80053-TC; 80061-TC; 80076-TC; 83690-TC; 83735-TC; 84100-TC; 84703-TC; 85025-TC; 85610-TC; 85730-TC; 86850-TC; 87081-TC; 88304-TC; A4216; A4223; A6209; A9537; A9563; C2625; C9113; G0378; J0690; J0744; J1100; J1170; J1885; J2250; J2270; J2405; J2543; J2704; J3010; J3430; J3475; J3480; J3490; J7030; J7040; J7050; J7060; J7120; Q9967